=== PATIENT | male | born 1965 | race Caucasian/White ===

== ENCOUNTER → 2016-12-30 | Outpatient (CLI) | payer OTHER ==
[~2016-12-30] MED LIST: AMINO ACID1 EACH PO; ASPIRIN81 M1 PO; FLOMAX0.4 MG PO; MULTI VITAMINS1 TAB PO; SAW PALMETTO80 M1 PO; VALIUM10 MG PO; ZESTRIL5 MG PO; [UNRECOGNIZED DRUG - OTHER]
== END | disposition home or self-care (01) ==
LOC: CT 13:40
DX: N13.30 Unspecified hydronephrosis (principal); M54.5 Low back pain; R33.9 Retention of urine, unspecified

== ENCOUNTER → 2018-03-08 | Outpatient (CLI) | payer OTHER | END | disposition home or self-care (01) | LOC: US 10:47 | DX: R10.84 Generalized abdominal pain (principal) ==

== ENCOUNTER → 2018-08-22 | Outpatient (CLI) | payer OTHER | END | disposition home or self-care (01) | LOC: US 09:50 | DX: N28.1 Cyst of kidney, acquired (principal) ==